=== PATIENT | male | born 1985 | race Caucasian/White ===

== ENCOUNTER 2018-10-22 08:52 | Outpatient (CLI) | payer OTHER ==
--- NOTE | 2018-10-22 17:31 | MRI Report ---
Reason: PAIN IN RIGHT WRIST Procedure Date: 10/22/2018 Accession Number: [id number] / [id number] Procedure: MRI - Wrist RT W/O CPT Code: FULL RESULT: EXAM: RIGHT WRIST MRI WITHOUT CONTRAST EXAM DATE: 10/22/2018 09:18 AM. CLINICAL HISTORY: PAIN IN RIGHT WRIST. "Unable to get fat saturation images. Possible coil malfunction". COMPARISON: None. TECHNIQUE: The following sequences are obtained of the right wrist: 1. Coronal T1-weighted. 2. Coronal T2-weighted fat saturation. 3. Axial T1-weighted. 4. Coronal gradient echo T2 weighted FINDINGS: Bones: No fractures or subluxations. No marrow edema. No bone lesions. Cartilage: The articular cartilage is unremarkable. Evaluation of the triangular fibrocartilage is compromised on the coronal T2-weighted fat saturation sequence. Negative for triangular fibrocartilage fluid signal defect. Ligaments: The scapholunate and lunotriquetral ligaments are intact. The visualized other intrinsic, extrinsic and collateral ligaments are unremarkable. Tendons: The extensor compartment I through and flexor tendons are unremarkable. Musculature: No edema or fatty atrophy. Other: The contents of the carpal tunnel, including the median nerve, are unremarkable. Guyons canal is unremarkable. No ganglion cysts. No joint effusions. The subcutaneous tissues are unremarkable. IMPRESSION: Unremarkable incomplete MRI wrist from possible coil malfunction. Patient is to return free of charge for completion of the MRI wrist. [facility]
== END 2018-10-22 08:53 | disposition home or self-care (01) ==
LOC: DI 08:52
PROVIDERS: ATTEND General Practice
DX: M25.531 Pain in right wrist (principal)

== ENCOUNTER 2020-06-16 14:01 | Outpatient (CLI) | payer OTHER ==
--- NOTE | 2020-06-16 16:32 | MRI Report ---
PROCEDURE: Shoulder LT W/O INDICATIONS: LT SHOULDER PAIN TECHNIQUE: Noncontrast oblique coronal T2 fast spin echo with fat saturation, oblique sagittal T1 spin echo and T2 fast spin echo with fat saturation, axial T1 spin echo and T2 fast spin echo with fat saturation t hrough the shoulder. COMPARISON: None. FINDINGS: Image quality: Excellent. Rotator cuff: There is low-grade bursal surface tearing of the mid/posterior supraspinatus tendon at the humeral insertion site extending to the musculotendinous junction. Low-grade partial-thickness i ntrasubstance tearing of the upper subscapularis tendon at the humeral insertion site. The infraspina tus, and teres minor tendons appear intact throughout. No rotator cuff muscle atrophy on sagittal im ages. Bones and bursae: No bone marrow contusions or fractures. Moderate acromioclavicular joint degenerat ion. The acromion demonstrates conventional anatomy, without an os acromiale. No pathologic subacro mial/subdeltoid bursal fluid is present. Capsule and soft tissues: In the absence of intra-articular contrast, the labrum and glenohumeral li gaments appear intact. The long head of the biceps tendon demonstrates normal location and morpholog y. The rotator interval appears normal, without fibrosis. The coracohumeral ligament is normal in t hickness. IMPRESSION: 1. Low-grade bursal surface tearing of the supraspinatus tendon. 2. Low-grade intrasubstance tearing of the subscapularis tendon. 3. No full-thickness rotator cuff tear. 4. Acromioclavicular joint osteoarthritis. Reviewed by: Kranthi Hall MD on 06/16/2020 4:30 PM PST Approved by: Kranthi Hall MD on 06/16/2020 4:30 PM PST Station ID: [id number]
== END 2020-06-16 14:02 | disposition home or self-care (01) ==
LOC: DI 14:01
PROVIDERS: ATTEND Student in an Organized Health Care Education/Training Program
DX: M19.012 Primary osteoarthritis, left shoulder (principal); M75.102 Unspecified rotator cuff tear or rupture of left shoulder, not specified as traumatic; S43.492A Other sprain of left shoulder joint, initial encounter

== ENCOUNTER 2022-10-06 13:16 | Outpatient (CLI) | payer OTHER ==
[~2022-10-06 13:16] MED LIST: GADOBUTROL 7.5 MMOL/7.5 ML VIAL ONE; LIDOCAINE-MPF 1% 5 ML VIAL ONE; iohexoL-240 10 ML VIAL IVP ONE
[2022-10-06] MEDS ORDERED: iohexoL-240 10 ML VIAL IVP ONE (14:27)
[2022-10-06] MEDS ORDERED: GADOBUTROL 7.5 MMOL/7.5 ML VIAL IVP ONE (14:28)
[2022-10-06] MEDS ORDERED: LIDOCAINE-MPF 1% 5 ML VIAL TD ONE (14:29)
--- NOTE | 2022-10-07 07:07 | MRI Report ---
PROCEDURE: ARTHROGRAM SHOULDER - RT INDICATIONS: RIGHT SHOULDER PAIN CONTRAST: Dilute intra-articular gadolinium contrast TECHNIQUE: After the administration of 12 mL of dilute intra-articular Gadolinium contrast, oblique coronal T1 a nd T2 spin echo with fat saturation, oblique sagittal T1 spin echo with and without fat saturation, o blique sagittal T2 fast spin echo with fat saturation, axial T1 spin echo with fat saturation through the shoulder. COMPARISON: None. FINDINGS: Image quality: Excellent. Rotator cuff: Mild supraspinatus tendinosis. The infraspinatus, teres minor, and subscapularis tendon s are intact. There is no significant rotator cuff muscle atrophy. Bones and bursae: Mild osseous edema is seen surrounding the acromioclavicular joint, slightly greate r at the distal clavicle. The acromion clavicular joint is normally aligned and there are mild to mod erate degenerative changes. Small subchondral cystic changes are seen in the distal clavicle. Coracoc lavicular ligament is intact. No glenohumeral cartilage defect. There is a small amount of noncommuni cating subacromial/subdeltoid bursal fluid. No filling defect is seen in the glenohumeral joint. Capsule and soft tissues: There is uptake of intra-articular contrast at the superior to posterosupe rior labrum, consistent with nondisplaced tearing. The labrum is otherwise intact. The proximal bicep s long head tendon is intact. The glenohumeral ligaments are intact. IMPRESSION: 1.Osseous edema surrounding the acromioclavicular joint may be secondary to a recent acromioclavicula r separation injury versus osseous contusion, repetitive microtrauma, or underlying degenerative sims ges. The acromioclavicular joint is normally aligned. Coracoclavicular ligament is intact. 2.Small nondisplaced partial tear of the superior to posterosuperior labrum. 3.Mild supraspinatus tendinosis. No significant rotator cuff tendon tear. Reviewed by: Yemi Bynum MD on 10/06/2022 4:02 PM PDT Approved by: Yemi Bynum MD on 10/06/2022 4:02 PM PDT Station ID: [id number]
--- NOTE | 2022-10-07 07:07 | XRAY Report ---
PROCEDURE: Arthrogram Needle Placement INDICATIONS: RIGHT SHOULDER PAIN CONTRAST: FLUOROSCOPY TIME: 0.3 TECHNIQUE: The indications, alternatives, benefits, risks, and complications of the procedure were explained to the patient. Written informed consent was obtained and placed in the chart. The shoulder was examin ed fluoroscopically and a site for needle placement chosen for entry into the glenohumeral joint from an anterior approach. The skin was prepped and draped in the usual fashion, and 1% lidocaine infilt rated from skin down to joint capsule. A spinal needle was inserted into the glenohumeral joint, and a small amount of iodinated contrast media injected to confirm intra-articular placement of the need le tip. This was followed by approximately 12 mL dilute solution of a gadolinium containing MR contr ast agent. The needle was removed and a dressing was applied. The patient was given postprocedural instructions and sent to the MR suite for MR imaging. FINDINGS: A single fluoroscopic spot image demonstrates intra-articular location of injected iodinated contrast . IMPRESSION: Successful fluoroscopically guided administration of dilute Gadolinium solution into the shoulder brittney cabrera for MR arthrogram. Reviewed by: Hanane Sanders MD on 10/06/2022 4:05 PM PDT Approved by: Hanane Sanders MD on 10/06/2022 4:05 PM PDT Station ID: [id number]
== END 2022-10-06 13:17 | disposition home or self-care (01) ==
LOC: DI 13:16
PROVIDERS: ATTEND Student in an Organized Health Care Education/Training Program
DX: R93.6 Abnormal findings on diagnostic imaging of limbs (principal); S43.491A Other sprain of right shoulder joint, initial encounter; M75.81 Other shoulder lesions, right shoulder
CPT/HCPCS: 23350; 73222; 77002; A9585; Q9966

== ENCOUNTER 2023-09-18 11:16 | Emergency (ER) | payer OTHER ==
[2023-09-18 11:46] LABS: BASOPHILS # (AUTO) 0.1 10^3/uL (0.0-0.1); BASOPHILS % (AUTO) 0.8 %; EOSINOPHILS # (AUTO) 0.1 10^3/uL (0.0-0.7); EOSINOPHILS % (AUTO) 1.7 %; HCT - HEMATOCRIT 45.3 % (42.0-52.0); HGB - HEMOGLOBIN 15.2 g/dL (14.0-18.0); LYMPHOCYTES # (AUTO) 2.2 10^3/uL (1.5-3.5); LYMPHOCYTES % (AUTO) 36.7 %; MEAN CORPUSCULAR HGB CONC 33.6 g/dL (32.0-36.0); MEAN CORPUSCULAR VOLUME 83.6 fL (80.0-94.0); MEAN PLATELET VOLUME 9.4 fL (7.4-11.4); MONOCYTES # (AUTO) 0.4 10^3/uL (0.0-1.0); MONOCYTES % (AUTO) 6.5 %; NEUTROPHILS # (AUTO) 3.2 10^3/uL (1.5-6.6); NEUTROPHILS % (AUTO) 54.1 %; PLT - PLATELET COUNT 237 10^3/uL (130-450); RED BLOOD COUNT 5.42 10^6/uL (4.70-6.10); RED CELL DISTRIBUTION WIDTH 12.8 % (12.0-15.0)
--- NOTE | 2023-09-18 11:46 | XRAY Report ---
PROCEDURE: Chest 1V INDICATIONS: Chest pain TECHNIQUE: One view of the chest was acquired. COMPARISON: None. FINDINGS: Surgical changes and devices: None. Lungs and pleura: No pleural effusions or pneumothorax. Lungs are clear. Mediastinum: Mediastinal contours appear normal. Heart size is normal. Bones and chest wall: No suspicious bony lesions. Overlying soft tissues appear unremarkable. IMPRESSION: No acute cardiopulmonary process. Reviewed by: Amador Tijerina MD on 09/18/2023 11:45 AM PDT Approved by: Amador Tijerina MD on 09/18/2023 11:45 AM PDT Station ID: [id number]
[2023-09-18 12:00] LABS: ALBUMIN 4.3 g/dL (3.2-5.5); ALBUMIN/GLOBULIN RATIO 1.9 (1.0-2.2); ALKALINE PHOSPHATASE 54 IU/L (42-121); ALT ALANINE AMINOTRANSFERASE 31 IU/L (10-60); AST ASPARTATE AMINOTRANSFERASE 19 IU/L (10-42); BILIRUBIN,TOTAL 0.7 mg/dL (0.2-1.0); BUN - BLOOD UREA NITROGEN 15 mg/dL (6-20); CALCIUM 9.5 mg/dL (8.5-10.3); CARBON DIOXIDE - CO2 29 mmol/L (21-32); CHLORIDE 107 mmol/L (101-111); CREATININE 0.9 mg/dL (0.6-1.3); GFR - MDRD 93 (>89); GLUCOSE 100 mg/dL (74-104); LIPASE 22 U/L (11-82); POTASSIUM 4.1 mmol/L (3.5-4.5); SODIUM 140 mmol/L (135-145); TOTAL PROTEIN 6.6 g/dL (6.4-8.9)
[2023-09-18 12:07] LABS: TROPONIN I HIGH SENSITIVITY < 2.3 ng/L (2.3-19.7)
--- NOTE | 2023-09-18 13:14 | ED Physician Documentation ---
PD HPI CHEST PAIN - Stated complaint Stated Complaint: CP - Chief complaint Chief Complaint: Cardiac - Additional information Additional information: 38-year-old male with no pertinent past medical history presents emergency department today for chest pain. He attempted to follow-up with his primary care provider for further evaluation of this but they told him he needed to come to the ER. Patient said that he had a panic attack over this weekend and he is on at home stressors and work stressors going on and since then he has been feeling just some generalized tenderness to his chest he says it feels like hypersensitivity and normal some bruising if you push it gets worse. No nausea vomiting no exertional chest pain no dizziness no vision changesHe says this is never happened to him before. PD PAST MEDICAL HISTORY - Past Medical History Past Medical History: Yes Cardiovascular: None Respiratory: None Neuro: None Endocrine/Autoimmune: None GI: None : None HEENT: None Psych: None Musculoskeletal: Other Derm: None - Past Surgical History Past Surgical History: No - Present Medications Home Medications: Ambulatory Orders Medication Instructions Recorded Confirmed No Known Home Medications 09/18/23 09/18/23 - Allergies Allergies/Adverse Reactions: Allergies Allergy/AdvReac Type Severity Reaction Status Date / Time No Known Drug Allergies Allergy Verified 09/18/23 11:22 - Social History Does the pt smoke?: No Smoking Status: Never smoker Does the pt drink ETOH?: Yes Does the pt have substance abuse?: No - Immunizations Immunizations are current?: Yes PD ED PE NORMAL - Vitals Vital signs reviewed: Yes - General General: Alert and oriented X 3, No acute distress, Well developed/nourished - HEENT HEENT: Atraumatic, PERRL - Neck Neck: No JVD - Cardiac Cardiac: RRR, No gallop, Strong equal pulses - Respiratory Respiratory: No respiratory distress, Clear bilaterally - Derm Derm: Normal color, Warm and dry, No rash - Psych Psych: Normal mood Results - Vitals Vitals: Vital Signs - 24 hr 09/18/23 09/18/23 11:23 13:27 Temperature 36.5 C Heart Rate 63 48 L Respiratory 16 14 Rate Blood Pressure 121/89 H 137/77 H O2 Saturation 100 98 Oxygen O2 Source Room air - EKG (time done) 1132 EKG releavant findings:: EKG personally interpreted by author of this note. Relevant findings are: Rate: Rate (enter#) (59) Rhythm: NSR [place]: Normal Intervals: Normal [place] QRS: Normal Ischemia: Normal ST segments Computer interpretation: Agree with computer - Labs Labs: Laboratory Tests 09/18/23 09/18/23 11:41 11:41 WBC 6.0 RBC 5.42 Hgb 15.2 Hct 45.3 MCV 83.6 MCH 28.0 MCHC 33.6 RDW 12.8 Plt Count 237 MPV 9.4 Neut # (Auto) 3.2 Lymph # (Auto) 2.2 [place] # (Auto) 0.4 Eos # (Auto) 0.1 Baso # (Auto) 0.1 Absolute Nucleated RBC 0.00 Nucleated RBC % 0.0 Sodium 140 Potassium 4.1 Chloride 107 Carbon Dioxide 29 Anion Gap 4.0 L BUN 15 Creatinine 0.9 Estimated GFR (MDRD) 93 Glucose 100 Calcium 9.5 Total Bilirubin 0.7 AST 19 ALT 31 Alkaline Phosphatase 54 Troponin I High Sens < 2.3 L Total Protein 6.6 Albumin 4.3 Globulin 2.3 Albumin/Globulin Ratio 1.9 Lipase 22 - Rads (name of study) Chest x-ray Relevant Findings:: Final report received, EMP independent interpretation of test, Other (No acute cardiopulmonary abnormalities.) PD Medical Decision Making - ED course ED course: Exam without evidence of volume overload so doubt heart failure. EKG without signs of active ischemia. Given the timing of pain to ER presentation, single troponin was negative so doubt NSTEMI. Presentation not consistent with acute PE (PERC negative),pneumothorax (not visualized on chest xr), thoracic aortic dissection, pericarditis, tamponade, pneumonia (no infectious symptoms, clear chest xr), myocarditis (no recent illness, neg trop). HEART score:0 so plan to discharge patient home with PCP follow-up. Patient understands return ER precautions all questions answered Departure - Departure Disposition: 01 Home, Self Care Clinical Impression: Chest pain Qualifiers: Chest pain type: intercostal pain Qualified Code(s): R07.82 - Intercostal pain Condition: Good Instructions: ED Chest Pain Atypical Unkn Cause, ED Chest Pain Costochondritis Comments: Thank you for trusting us with your care. We have completed an EKG, and x-ray and labs and we are not seeing any abnormal results that require further hospitalization or workup. Please follow-up with your primary care provider this week you can take Tylenol ibuprofen for the chest tenderness that you are experiencing. Please come back to the emergency department for chest pain changes or gets any worse or if you develop any other concerning symptoms. Forms: PCP List Discharge Date/Time: 09/18/23 13:42
[2023-09-18 13:34] VITALS: BP 137/77; O2SAT 98
== END 2023-09-18 13:42 | disposition home or self-care (01) ==
LOC: ED 11:16
DX: R07.82 Intercostal pain (principal)
CPT/HCPCS: 36415; 80053; 83690; 84484; 85025; 93005; 99284